=== PATIENT | female | born 1960 | race Caucasian/White ===

== ENCOUNTER 2018-12-20 00:22 | Emergency (ER) | payer MEDICAID, SELFPAY ==
[2018-12-20 00:22] VITALS: BP 124/68; PULSE 66; RESP 22; TEMP 36.8; O2SAT 98; BMI 47.7
--- NOTE | 2018-12-20 00:35 | ED.VIS.GEN ---
History of Present Illness Chief Complaint: Eye Problem Detail of Chief Complaint: Left eye pain Informant: Patient Onset: Yesterday Current Severity: Mild Maximum Severity: Mild Narrative: Patient states she feels like she got something in her left eye yesterday. She used some eyedrops and it seemed to resolve. Today she has had continued foreign body sensation. She has minimal light sensitivity. No vision change. She wears glasses but no contacts. She denies any prior eye surgeries. Past Medical History - Allergies and Home Meds Allergies/Adverse Reactions: Allergies acetaminophen [From Vicodin] Allergy (Verified 12/20/18 00:25) MAKES ME CRAZY hydrocodone [From Vicodin] Allergy (Verified 12/20/18 00:25) MAKES ME CRAZY Primary Care Physician: Daniele Huang MD [STAFF PHYSICIAN] - 1 Day Prior records reviewed: Yes Past Medical History: - - Reviewed Smoking Status: Never smoker Review of Systems General: Denies: Chills, Fever Eyes: Reports: - - Left eye pain Cardiovascular: Denies: Chest pain Respiratory: Denies: Dyspnea, Cough Gastrointestinal: Denies: Abdominal pain Physical Exam Vital Signs/Narrative: Vital Signs Temp Pulse Resp BP Pulse Ox 12/20/18 00:22 98.3 F 66 22 H 124/68 H 98 General: Well nourished, Well developed Head: Normocephalic Eyes: - - Left eye appears to be slightly more dilated than the right. He does react to light appropriately. Extraocular movements are fully intact. Conjunctive is noninjected. Neck: Supple Cardiovascular: Regular rate, Regular rhythm Respiratory: No distress, CTA bilaterally Abdomen: Soft, Nontender Diagnostic/Tx/Re-eval Visual acuity is 20/20 left eye, 20/20 bilateral, 20/25 right eye - Medical Decision Making Slit lamp examination was performed and does reveal evidence of corneal abrasion without foreign body. Patient believes that her left eye is slightly more dilated than right because of the allergy eyedrops that she was using. The name she gives me does not match anything that I can find to check active ingredients. I would recommend she follow-up with ophthalmology tomorrow I will call them in the morning to notify them that she will be calling. She will be given gentamicin eyedrops tonight. Her exam is not consistent with glaucoma. Procedures Procedure(s): Slit-lamp examination was performed and revealed no sign of foreign body. Pupil is reactive to light. There is evidence of superficial abrasion noted with slit-lamp exam. Fluorescein is applied and does show uptake over the lower portion of the pupil. ED Disposition - Plan for ED Patient: Disposition: Home or Assisted Living Instructions: Corneal Abrasion Referrals: Daniele Huang MD [STAFF PHYSICIAN] - 1 Day
[2018-12-20] MEDS: Fluorescein 1 MG STRIP 1 STRIP LEFT EYE (01:03)
[2018-12-20] MEDS: Tetracaine 0.5% Ophthalmic Bottle 1 DRP LEFT EYE (01:03)
[2018-12-20] MEDS: Gentamicin Sulfate 1 OPTH.BTL 2 DRP LEFT EYE (01:40)
[2018-12-20 01:42] VITALS: PULSE 60; RESP 18
== END 2018-12-20 01:43 | disposition home or self-care (01) ==
PROVIDERS: Emergency Provider Emergency Medicine; Family Provider Physician Assistant Medical; PCP Physician Assistant Medical
DX: S05.02XA Injury of conjunctiva and corneal abrasion without foreign body, left eye, initial encounter (principal); X58.XXXA Exposure to other specified factors, initial encounter; Y93.9 Activity, unspecified; Y92.89 Other specified places as the place of occurrence of the external cause; Y99.8 Other external cause status
CPT/HCPCS: 99283